=== PATIENT | female | born 1955 | race Caucasian/White ===

== ENCOUNTER 2024-08-25 15:12 | Outpatient (CLI) | payer MEDICARE | END 2024-08-25 15:13 | disposition home or self-care (01) | LOC: CSHMAMMO 15:12 | PROVIDERS: ATTEND Internal Medicine Hematology & Oncology | DX: M85.89 Other specified disorders of bone density and structure, multiple sites (principal); Z53.9 Procedure and treatment not carried out, unspecified reason ==

== ENCOUNTER 2025-03-25 22:50 | Emergency (ER) | payer MEDICARE ==
[2025-03-25 23:24] LABS: #Basophils Less than 0.03 10x3/uL (0.0-0.2); #Eosinophils 0.08 10x3/uL (0.0-0.5); #Monocytes 0.65 10x3/uL (0.0-1.1); #Neutrophils 4.77 10x3/uL (1.5-8.4); %Basophils 0.3 % (0.0-2.0); %Eosinophils 1.2 % (0.0-6.0); %Lymphocytes 16.1 % (18.0-47.0); %Monocytes 9.9 % (0.0-10.0); %Neutrophils 72.3 % (40.0-75.0); Hematocrit 37.8 % (34.9-44.5); Hemoglobin 12.1 g/dL (12.0-15.5); Mean Corpuscular Hemoglobin 30.6 pg (27.0-33.0); Mean Corpuscular Volume 95.5 fL (81.6-98.3); Platelet Count 163 10x3/uL (150-450); Red Blood Cell (RBC) Count 3.96 10x6/uL (3.90-5.03); White Blood Cell (WBC) Count 6.59 10x3/uL (3.5-10.5)
[2025-03-25 23:36] LABS: ALT (SGPT) 37 U/L (Less than 34); AST (SGOT) 35 U/L (11-34); Albumin 3.7 g/dL (3.1-4.5); Alkaline Phosphatase 66 U/L (40-110); Anion Gap 15 mmol/L (10-20); BUN (Urea Nitrogen) 18 mg/dL (9.8-20.1); Bilirubin, Total 0.5 mg/dL (0.3-1.2); Calc. Creatinine Clearance 0 mL/min (70-130); Calcium 8.9 mg/dL (7.8-10.44); Carbon Dioxide 23 mmol/L (23-31); Chloride 106 mmol/L (98-107); Globulin 3.0 g/dL (2.4-3.5); Glucose 176 mg/dL (83-110); Potassium 4.6 mmol/L (3.5-5.1); Sodium 139 mmol/L (136-145)
[2025-03-25 23:39] LABS: Glucose, Urine (Dipstick) Normal (Negative); Leukocyte 25 (Negative); Protein, Urine (Dipstick) Negative (Neg-Trace); Specific Gravity, Urine 1.010 (1.005-1.030)
[2025-03-25 23:43] LABS: Troponin I 0.016 ng/mL (< 0.028)
[2025-03-25 23:46] LABS: Bacteria/HPF None Seen HPF (None Seen); CAUTI Indications for Culture Pelvic or flank pain; RBC/HPF None Seen HPF (0-3); WBC/HPF 0-3 HPF (0-3)
[2025-03-25 23:48] LABS: Urine Culture Reflex No No
[2025-03-26 01:02] LABS: Troponin I 0.013 ng/mL (< 0.028)
[2025-03-26 01:52] LABS: Troponin I Less than 0.010 ng/mL (< 0.028)
== END 2025-03-26 01:59 | disposition home or self-care (01) ==
LOC: CSHERS 22:50
DX: R55 Syncope and collapse (principal); E11.9 Type 2 diabetes mellitus without complications; I10 Essential (primary) hypertension; Z95.0 Presence of cardiac pacemaker; Z79.899 Other long term (current) drug therapy; Z79.84 Long term (current) use of oral hypoglycemic drugs
CPT/HCPCS: 36415; 70450; 71045; 80053; 80307; 81001; 84484; 85025; 93005; 93010

== ENCOUNTER 2025-04-25 09:52 | Outpatient (CLI) | payer MEDICARE | END 2025-04-25 09:53 | disposition home or self-care (01) | LOC: CSHMAMMO 09:52 | PROVIDERS: ATTEND Surgery | DX: Z08 Encounter for follow-up examination after completed treatment for malignant neoplasm (principal); Z85.3 Personal history of malignant neoplasm of breast | CPT/HCPCS: 77066; G0279 ==